=== PATIENT | female | born 1980 | race Caucasian/White ===

== ENCOUNTER 2016-08-10 12:37 | Emergency (ER) | payer OTHER ==
[2016-08-10 13:37] LABS: URINE BILIRUBIN NEGATIVE (NEGATIVE); URINE BLOOD 4+ (NEGATIVE); URINE GLUCOSE (UA) NEGATIVE (NEGATIVE); URINE LEUKOCYTE ESTERASE NEGATIVE (NEGATIVE); URINE NITRITE NEGATIVE (NEGATIVE); URINE PROTEIN NEGATIVE (NEGATIVE); URINE UROBILINOGEN NORMAL (0-1 mg/dl)
[2016-08-10 13:39] LABS: HCG,QUALITATIVE URINE NEGATIVE; URINE APPEARANCE CLEAR; URINE COLOR YELLOW
[2016-08-10 14:01] LABS: URINE EPITHELIAL CELLS 0-3 /hpf; URINE RBC 0-1 /hpf; URINE WBC 0-1 /hpf
[2016-08-10 14:02] LABS: URINE BACTERIA 1+
[2016-08-11 14:36] LABS: CHLAMYDIA BD Negative (Negative); N.GONORRHOEAE BD Negative (Negative); SOURCE Urine (())
== END 2016-08-10 14:24 | disposition home or self-care (01) ==
LOC: ED 12:37
DX: R10.2 Pelvic and perineal pain (principal); N92.6 Irregular menstruation, unspecified

== ENCOUNTER 2016-08-11 11:18 | Emergency (ER) | payer OTHER ==
[2016-08-11] MEDS ORDERED: ONDANSETRON 4 MG/2ML 2 ML VIAL ONE ×2 (12:56→14:51)
[2016-08-11] MEDS ORDERED: SODIUM CHLORIDE 0.9% 1,000 ML ONE ×2 (12:56→14:51)
[2016-08-11] MEDS ORDERED: KETOROLAC TROMETHAMINE 30 MG/ML 1 ML VIAL ONE (12:56)
[2016-08-11 13:10] LABS: ABSOLUTE NEUTROPHIL COUNT 4.3 K/mm3 (1.8-7.7); BASO % 0.6 % (0.2-1.0); EOS # 0.1 (0.0-0.5); EOS % 1.7 % (0.9-2.9); HEMATOCRIT 39.1 % (37.0-47.0); HEMOGLOBIN 12.7 gm/l (12.0-16.0); IMM NEUT% 0.1 % (0-1); LYMPH # 2.3 (1.0-4.8); LYMPH % 32.2 % (15-45); MEAN CELL VOLUME 89.3 fl (81.0-99.0); MEAN CORPUSCULAR HGB CONC 32.5 g/dl (33.0-37.0); MONO # 0.4 (0.0-0.8); MONO % 5.2 % (4-12); NEUT % 60.2 % (43-75); PLATELET COUNT 187 K/mm3 (130-400); RED CELL DISTRIBUTION WIDTH 12.5 % (11.5-14.5)
[2016-08-11 13:25] LABS: SPECIFIC GRAVITY 1.015 (1.001-1.030); URINE BILIRUBIN NEGATIVE (NEGATIVE); URINE BLOOD 3+ (NEGATIVE); URINE GLUCOSE (UA) NEGATIVE (NEGATIVE); URINE LEUKOCYTE ESTERASE NEGATIVE (NEGATIVE); URINE NITRITE NEGATIVE (NEGATIVE); URINE PROTEIN NEGATIVE (NEGATIVE); URINE UROBILINOGEN NORMAL (0-1 mg/dl)
[2016-08-11 13:27] LABS: URINE APPEARANCE CLEAR; URINE COLOR AMBER
[2016-08-11 13:31] LABS: ALB/GLOB RATIO 1.5 (>1.0); ALT/SGPT 11 U/L (7-52); BLOOD UREA NITROGEN 11 mg/dL (7-25); BUN/CREATININE RATIO 12 (6-20); C-REACTIVE PROTEIN < 0.3 mg/dl (<1.0); CALCIUM 8.9 mg/dL (8.6-10.3); GLOMERULAR FILTRATION RATE 72 mL/min (60-107)
[2016-08-11 13:50] LABS: URINE BACTERIA FEW; URINE EPITHELIAL CELLS 0-2 /hpf; URINE RBC 0 /hpf; URINE WBC 0-1 /hpf
[2016-08-11] MEDS ORDERED: HYDROMORPHONE HCL 1 MG/ML SYRINGE ONE (14:51)
--- NOTE | 2016-08-11 14:55 | US ---
PELVIC COMPLETE, TRANSVAGINAL ECHOGRAPHY: 08/11/2016 12:41 PM CLINICAL HISTORY: Pelvic pain for 2 days with hypotension.. Comparison: None STUDY: Transabdominal and transvaginal imaging was performed with multiple grayscale, color-flow and duplex Doppler imaging. FINDINGS: Uterus: Orientation: Anteverted. Size: 9.8 x 4.3 x 5.8 cm Mass: None. Cervix: Normal. Endometrium: Endometrial thickness measures 14 mm. IUD is present within the endometrial cavity. Ovaries: Size: Right measures 2.5 x 1.5 x 2.2 cm; left measures 3.0 x 1.8 x 2.8 cm. Arterial and venous blood flow: right ovary: Present, left ovary: Present Mass: Left-sided dominant follicle measures 1.2 x 0.9 x 1.9 cm Adnexa: Mass: None. Cul-de-sac: No free fluid. No fluid is identified within the 4 quadrants of the abdomen. IMPRESSION: Left-sided dominant follicle. IUD is centrally located within the inner meatal cavity. No evidence of ascites within the 4 quadrants. Findings were called to Dr. Massey at approximately 1448 hours on 08/11/2016.
== END 2016-08-11 16:31 | disposition home or self-care (01) ==
LOC: ED 11:18
DX: R10.2 Pelvic and perineal pain (principal); F17.210 Nicotine dependence, cigarettes, uncomplicated
CPT/HCPCS: 86141; 85025; 80053; 85651; 81001; 76856; 76830; 96375 ×2; 96376; 99284; 96374; 96361; 99283; J1170; J1885; J2405 ×2; J7030 ×2